=== PATIENT | female | born 1990 | race Caucasian/White ===

== ENCOUNTER → 2022-02-04 | Outpatient (CLI) | payer OTHER, SELFPAY ==
[2022-02-05 09:42] LABS: HIV - WCH Non-Reactive (Nonreactive); Hepatitis C Antibody Non-Reactive (Nonreactive); Syphilis Antibodies Non-reactive
[2022-02-06 15:10] LABS: HSV 2 IgG < 0.91 index (0.00-0.90)
[2022-02-07 12:07] LABS: Chlamydia By Nucleic Acid AMP Negative (Negative)
[2022-02-07 12:20] LABS: Gonococcus By Nucleic Acid AMP Negative (Negative)
[2022-02-12 16:02] LABS: HPV APTIMA, High Risk Negative (Negative)
== END | disposition home or self-care (01) ==
PROVIDERS: PCP Family Medicine; Referring Provider Nurse Practitioner Women's Health; Visit Provider Nurse Practitioner Women's Health
DX: Z20.2 Contact with and (suspected) exposure to infections with a predominantly sexual mode of transmission (principal); Z12.4 Encounter for screening for malignant neoplasm of cervix
CPT/HCPCS: 36415; 86695; 86696; 86703; 86780; 86803; 87491; 87591; 87624; 88175; G0145